=== PATIENT | female | born 1955 | race Caucasian/White ===

== ENCOUNTER → 2017-08-20 | Outpatient (CLI) | payer OTHER ==
[~2017-08-20] MED LIST: NO MEDICATIONS
--- NOTE | 2017-08-20 11:50 | RADIOLOGY IMAGING REPORT ---
FACILITY: [facility] - [place] PATIENT NAME: Carlos Enrique Hackett : 1955 MR: [id number] V: [id number] EXAM DATE: ORDERING PHYSICIAN: JOSHUA STOKES TECHNOLOGIST: Location: [facility] - [place] Patient: Carlos Enrique Hackett : 1955 Visit/Account:[id number] Date of Sevice: 08/20/2017 L SPINE W/O CONTRAST Provided history: Low back pain with radiation down the anterior thigh. Side not specified. Patient i ndicates history of breast cancer. Additional pertinent history: none TECHNIQUE: Multiplanar multisequence lumbar MRI was performed without intravenous contrast. COMPARISON STUDIES: none FINDINGS: Segment numbering: Lumbosacral junction at L5-S1. No transitional segment. Extra-spinal soft tissues: Negative Alignment: Normal Osseous signal pattern: none Distal thoracic cord / conus / cauda equina: negative Disc Spaces: Lower T spine: negative L1-L2: The disk reveals mild narrowing and degeneration. Moderate disc bulge, eccentric left. No herniation or central stenosis. No significant foraminal stenosis. L2-L3: The disk reveals mild narrowing and degeneration. Mild eccentric left bulging disk witho ut significant osteophyte formation and without significant central stenosis. On the sagittal sequence, there is a potential small disc herniation in the midlateral left foramen b est seen image 13 series 3 and image 13 series 2 which might be affecting the exiting left L2 nerve. This is difficult to confirm on the axial sequence. The right foramen is only mildly narrowed by mild facet hypertrophy and bulging disc. L3-L4: The disk reveals mild narrowing and degeneration. Mild symmetric bulging disk without s ignificant osteophyte formation and without significant central stenosis. Mild narrowing both foramina from minor facet hypertrophy and bulging disc. L4-L5: Disk height and signal pattern normal. No evidence of disk herniation or central stenos is. No significant foraminal stenosis. L5-S1: Disk height and signal pattern normal. Minor disc bulge. No herniation or central steno sis. Minor facet hypertrophy. No foraminal stenosis. IMPRESSION: Relatively mild degenerative changes are defined above without significant central stenosis. There is a potential small disc herniation involving the mid-lateral left L2-3 foramen which might affect the exiting left L2 nerve. Correlate with signs and symptoms. Report Dictated By: Neno Tolliver MD at 08/20/2017 11:37 AM Report E-Signed By: Neno Tolliver MD at 08/20/2017 11:44 AM WSN:[id number]
== END ==
LOC: MRI 07:29
PROVIDERS: ATTEND Physician Assistant Medical
DX: M47.9 Spondylosis, unspecified (principal)
CPT/HCPCS: 72148

== ENCOUNTER → 2017-09-04 | Outpatient (CLI) | payer OTHER ==
--- NOTE | 2017-09-04 13:28 | RADIOLOGY IMAGING REPORT ---
[facility] PATIENT NAME: ANGEL GARRISON : [id number] MR: [id number] V: [id number] EXAM DATE: ORDERING PHYSICIAN: STEVE DOSS TECHNOLOGIST: America Roberson PROCEDURE:BILATERAL DIGITAL SCREENING MAMMOGRAM WITH CAD ASSISTED INTERPRETATION & 3D TOMOSYNTHESIS COMPARISON:Prior mammograms 06/03/16, 04/23/15, 04/18/14, 11/23/12, 11/21/11, 10/30/10 INDICATIONS:SCREENING FINDINGS: A small amount of fibroglandular tissue is seen throughout the breasts. The parenchymal pattern has remained stable allowing for difference in mammographic technique & patient positioning. The area of postsurgical scaring in the central right breast appears unchanged. There is no evidence of malignant appearing mass, malignant appearing calcifications or other secondary sign of malignancy in either breast. DIAGNOSTIC CATEGORY 2--BENIGN FINDING. RECOMMENDATIONS: ROUTINE MAMMOGRAM AND CLINICAL EVALUATION. IMPRESSION: BIRADS 2: Benign finding No significant abnormality is seen Dictated by: Lyn Iglesias M.D. on 09/04/2017 at 9:13 Transcribed by: MARQUISE on 09/04/2017 at 10:05 Approved by: Lyn Iglesias M.D. on 09/04/2017 at 13:27 [facility]
== END ==
LOC: MAMO 02:49
PROVIDERS: ATTEND Physician Assistant
DX: Z12.31 Encounter for screening mammogram for malignant neoplasm of breast (principal)
CPT/HCPCS: 77063; 77067

== ENCOUNTER → 2018-12-21 | Outpatient (CLI) | payer OTHER ==
--- NOTE | 2018-12-22 17:01 | RADIOLOGY IMAGING REPORT ---
FACILITY: [facility] - [place] PATIENT NAME: ANGEL GARRISON : [id number] MR: [id number] V: [id number] EXAM DATE: [id number] ORDERING PHYSICIAN: STEVE DOSS TECHNOLOGIST: Beth Foley PROCEDURE: BILATERAL DIGITAL SCREENING MAMMOGRAM WITH CAD ASSISTED INTERPRETATION & 3D TOMOSYNTHESIS. REASON FOR STUDY: Screening. FAMILY HISTORY OF BREAST CANCER: Self. BREAST PROCEDURES/TREATMENTS: Malignant lumpectomy of the Right breast in 2002 followed by radiation therapy and chemotherapy. COMPARISON: 09/04/17, 06/03/16, 04/23/15, 04/18/14, 11/23/12. VIEWS OBTAINED: 2D & 3D full field CC & MLO. BREAST DENSITY: There are scattered areas of fibroglandular density throughout the breasts. MAMMOGRAM FINDINGS: The Right breast is smaller than the Left consistent with the previous lumpectomy. Area of postsurgical scaring and architectural distortion in the deep central Right breast also again seen and appear relatively unchanged. The reminder of the parenchymal pattern also remains unchanged throughout both breasts. IMPRESSION: BIRADS 2: Benign finding. DIAGNOSTIC CATEGORY 2--BENIGN FINDING. RECOMMENDATIONS: ROUTINE MAMMOGRAM AND CLINICAL EVALUATION. Dictated by: Lyn Iglesias M.D. on 12/21/2018 at 17:06 Transcribed by: MARQUISE on 12/22/2018 at 8:56 Approved by: Lyn Iglesias M.D. on 12/22/2018 at 16:57 [facility]
== END ==
LOC: MAMO 00:45
PROVIDERS: ATTEND Physician Assistant
DX: Z12.31 Encounter for screening mammogram for malignant neoplasm of breast (principal)
CPT/HCPCS: 77063; 77067